=== PATIENT | female | born 1960 | race Caucasian/White ===

== ENCOUNTER 2016-11-13 21:12 | Emergency (ER) | payer OTHER ==
[2016-11-13 22:19] LABS: BILIRUBIN NEGATIVE (NEGATIVE); BLOOD 1+ Ery/uL (NEGATIVE); CLARITY CLEAR (CLEAR); COLOR YELLOW (YELLOW); GLUCOSE (U) NORMAL (NORMAL); KETONE (U) NEGATIVE (NEGATIVE); LEUKOCYTES NEGATIVE Leu/uL (NEGATIVE); NITRITE NEGATIVE (NEGATIVE); PROTEIN NEGATIVE (NEGATIVE); UROBILINOGEN 0.2 mg/dL (0.2-1.0)
[2016-11-13 22:24] LABS: BACTERIA TRACE; SQUAMOUS EPITHELIAL CELLS RARE
[2016-11-13 22:27] LABS: BASOPHIL 0.2 % (0-2); EOSINOPHIL 3.6 % (0-5); HCT 39.1 % (37.0-47.0); HGB 13.4 g/dl (12.5-16.0); LYMPHOCYTE 8.7 % (15-48); MCH 30.6 pg (25.0-31.0); MCHC 34.3 g/dL (32.0-36.0); MCV 89.3 fL (78.0-100.0); MONOCYTE 6.3 % (0-12); MPV 10.4 fL (6.0-9.5); NEUTROPHIL 81.2 % (41-80); PLT 254 K/uL (150-400); RBC 4.38 M/uL (4.20-5.40); WBC 9.2 K/uL (4.0-10.5)
[2016-11-13 22:29] LABS: AMPHETAMINES NEGATIVE (NEGATIVE); BARBITURATES NEGATIVE (NEGATIVE); BENZODIAZEPINES NEGATIVE (NEGATIVE); COCAINE NEGATIVE (NEGATIVE); MARIJUANA (THC) NEGATIVE (NEGATIVE); METHADONE NEGATIVE (NEGATIVE); TRICYCLIC ANTIDEPRESSANT NEGATIVE (NEGATIVE)
[2016-11-13 22:41] LABS: CREATININE 0.9 mg/dL (0.5-1.0); POTASSIUM 3.1 mmol/L (3.5-5.1)
== END 2016-11-14 02:05 | disposition home or self-care (01) ==
LOC: FER 21:12
PROVIDERS: Emergency Medicine Emergency Medical Services
DX: N30.00 Acute cystitis without hematuria (principal); Z87.440 Personal history of urinary (tract) infections; Z87.442 Personal history of urinary calculi; Z88.5 Allergy status to narcotic agent; Z91.041 Radiographic dye allergy status; Z88.7 Allergy status to serum and vaccine
CPT/HCPCS: 36415; 80048; 80305; 81001; 85025; J1170; J1885; J2405

== ENCOUNTER 2020-09-24 10:22 | Emergency (ER) | payer OTHER ==
[~2020-09-24 10:22] MED LIST: BENTYL10 MG PO; HCTZ25 MG PO; LIPITOR 10MG TA10 MG PO; MAG-OXIDE 400M400 MG PO
[2020-09-24 12:30] LABS: BASOPHIL 1.2 % (0-2); EOSINOPHIL 3.7 % (0-5); HCT 42.5 % (37.0-47.0); LYMPHOCYTE 45.7 % (15-48); MCH 30.8 pg (25.0-31.0); MCHC 32.9 g/dL (32.0-36.0); MCV 93.4 fL (78.0-100.0); MONOCYTE 10.8 % (0-12); MPV 11.6 fL (6.0-9.5); NEUTROPHIL 38.4 % (41-80); NRBC 0; PLT 262 K/uL (150-400); RBC 4.55 M/uL (4.20-5.40); RDW 13.2 % (11.5-14.0)
[2020-09-24 12:32] LABS: BILIRUBIN NEGATIVE (NEGATIVE); BLOOD 1+ Ery/uL (NEGATIVE); CLARITY CLEAR (CLEAR); COLOR YELLOW (YELLOW); GLUCOSE (U) NORMAL (NORMAL); LEUKOCYTES NEGATIVE Leu/uL (NEGATIVE); NITRITE NEGATIVE (NEGATIVE); PROTEIN NEGATIVE (NEGATIVE); SPECIFIC GRAVITY <=1.005 (1.001-1.030); UROBILINOGEN 0.2 mg/dL (0.2-1.0); pH 6.5 (5.0-9.0)
[2020-09-24 12:35] LABS: INR 0.95 (0.9-1.2); PTT 29.2 SECONDS (22.2-34.7)
[2020-09-24 12:57] LABS: ALBUMIN 3.9 g/dL (3.4-5.0); BILIRUBIN - TOTAL 0.9 mg/dL (0.2-1.0); BUN/CREAT RATIO (CALC) 12.2 RATIO; CREATININE 0.74 mg/dL (0.51-0.95); GLOBULIN (CALCULATION) 3.9 g/dL; MAGNESIUM 1.9 mg/dL (1.8-2.4); POTASSIUM 3.2 mmol/L (3.5-5.1); TOTAL PROTEIN 7.8 g/dL (6.4-8.2)
[2020-09-24] MEDS ORDERED: LOMOTIL1 EACH PO (15:26)
[2020-12-15] MEDS ORDERED: PROBIOTIC 2 BI1 EACH PO (13:19)
[2020-12-17] MEDS ORDERED: LEVSIN-SL0.125 MG SL (09:23)
== END 2020-09-24 15:35 | disposition home or self-care (01) ==
LOC: FER 10:22
PROVIDERS: Emergency Medicine
DX: R19.7 Diarrhea, unspecified (principal); M54.9 Dorsalgia, unspecified; Z20.822 Contact with and (suspected) exposure to COVID-19; Z87.448 Personal history of other diseases of urinary system; Z88.5 Allergy status to narcotic agent; Z91.041 Radiographic dye allergy status; Z88.8 Allergy status to other drugs, medicaments and biological substances
CPT/HCPCS: 36415; 71250; 80053; 81001; 83540; 83605; 83690; 83735; 84145; 84484; 85025; 85610; 85730; 87040; 93005; J2405; J7030; U0002

== ENCOUNTER → 2020-12-17 | Day surgery (SDC) | payer OTHER ==
[~2020-12-17] VITALS: Ht 157.5 cm; Wt 62.2 kg
[~2020-12-17] MED LIST changes: +LEVSIN-SL0.125 MG SL; +LOMOTIL1 EACH PO; +PROBIOTIC 2 BI1 EACH PO
== END | disposition home or self-care (01) ==
LOC: FAS 07:02
DX: K63.89 Other specified diseases of intestine (principal); K57.30 Diverticulosis of large intestine without perforation or abscess without bleeding; M25.552 Pain in left hip; N20.0 Calculus of kidney; R91.1 Solitary pulmonary nodule
CPT/HCPCS: J2250; J2704; J7120